=== PATIENT | male | born 1960 | race Caucasian/White ===

== ENCOUNTER 2017-02-02 07:28 | Emergency (ER) | payer BC ==
[~2017-02-02] VITALS: Ht 185.4 cm; Wt 90.0 kg
[2017-02-02 07:31] VITALS: Ht 185.4 cm; Wt 90.0 kg
[2017-02-02] MEDS ORDERED: HYDROCODONE/APAP (5/325) TAB PO ONE (08:00)
--- NOTE | 2017-02-02 08:56 | ERD ---
ER Documentation Chief Complaint Date/Time DATE: 02/02/17 TIME: 08:53 Chief Complaint LT THUMB INJURY , HIT WITH HAMMER X 2 DAYS AGO HPI This 56-year-old male who presents the emergency department today complaining of left thumb pain for the past 4 days. Patient states he hit his thumb with a hammer. States he has been taking aspirin for pain. Denies any previous trauma , fevers or chills. ROS All systems reviewed and are negative except as per history of present illness. Medications Home Meds Active Scripts Ibuprofen* (Motrin*) 600 Mg Tab, 600 MG PO Q6, #30 TAB Prov:JAEL DANIELS PA-C 02/02/17 Hydrocodone/Acetaminophen ([place] 5-325 Tablet) 1 Each Tablet, 1 TAB PO Q6H Y for PAIN, #10 TAB Prov:JAEL DANIELS PA-C 02/02/17 Allergies Allergies: Coded Allergies: No Known Allergy (Unverified , 02/02/17) PMhx/Soc History of Surgery: No Anesthesia Reaction: No Hx Neurological Disorder: No Hx Respiratory Disorders: No Hx Cardiac Disorders: No Hx Psychiatric Problems: No Hx Miscellaneous Medical Probl: No Hx Alcohol Use: No Hx Substance Use: No Hx Tobacco Use: No Physical Exam Vitals Vital Signs Date Time Temp Pulse Resp B/P Pulse Ox O2 Delivery O2 Flow Rate FiO2 02/02/17 07:31 97.7 66 16 139/84 97 Physical Exam Const: No acute distress Head: Atraumatic Eyes: Normal Conjunctiva ENT: Normal External Ears, Nose and Mouth. Neck: Full range of motion..~ No meningismus. Resp: Clear to auscultation bilaterally Cardio: Regular rate and rhythm, no murmurs Skin: No petechiae or rashes Ext: Left thumb with evidence of subungual hematoma. Nail bed still intact Neur: Awake and alert Psych: Normal Mood and Affect Results 24 hrs Current Medications Medications (Trade) Dose Ordered Sig/Maria C Route PRN Reason Start Time Stop Time Status Last Admin Dose Admin Acetaminophen/ Hydrocodone Bitart ([place] (5/325)) 1 tab ONCE ONCE PO 02/02/17 08:00 02/02/17 08:01 DC 02/02/17 07:58 DIAGNOSTIC IMAGING REPORT Patient: ABE HODGSON : 1960 Age: 56 Sex: M MR #: [id number] [facility] #: [id number] DOS: 02/02/17 0000 Ordering MD: JAEL DANIELS PA-C Location: [facility] Room/Bed: PROCEDURE: XR Left Thumb CLINICAL INDICATION: Hit with hammer, crush injury to thumb TECHNIQUE: AP, oblique, and lateral radiographs were submitted. COMPARISON: None FINDINGS: Osseous structures: appear well mineralized and intact with no fracture or destructive process identified. Joint spaces: Moderate degenerative changes seen about the interphalangeal joint of the left thumb. Mild degenerative changes seen about the first metacarpal phalangeal joint. Soft tissues: appear unremarkable. IMPRESSION: 1. No fracture is identified. 2. Moderate degenerative change seen about the interphalangeal joint of the left thumb with mild degenerative change at the first metacarpal phalangeal joint. Physician Pati Date Time Electronically viewed and signed by Physician Pati on 02/02/2017 09:18 RH/ CC: JAEL DANIELS PA-C Procedures/MDM This this is a right-handed 56-year-old male who presents the emergency department today complaining of left thumb pain after smashing it with a hammer. Patient has evidence of a subungual hematoma. I did obtain images. Per the radiology report images of the left thumb show no fracture or dislocation. There is moderate degenerative changes seen in at the IP joint of the left thumb and mild degenerative changes at the first MCP joint. The wound was cleaned here in the emergency department. I did make an attempt to remove some of the blood underneath the fingernail with an 18-gauge needle and a large amount of blood was released from the area. Patient was given Avella here in the emergency department. I will give him a short course of Avella as well as Motrin for home At this time the patient is stable for discharge and outpatient management. Patient should follow up with their PCP in the next 1-2 days. They may return to the emergency department sooner for any persistent or worsening of symptoms. Patient understood and agreed with the plan. Departure Diagnosis: Primary Impression: Nail problem Condition: Fair JAEL DANIELS PA-C February 02, 2017 08:56
--- NOTE | 2017-02-02 09:18 | RADRPT ---
PROCEDURE: XR Left Thumb CLINICAL INDICATION: Hit with hammer, crush injury to thumb TECHNIQUE: AP, oblique, and lateral radiographs were submitted. COMPARISON: None FINDINGS: Osseous structures: appear well mineralized and intact with no fracture or destructive process iden tified. Joint spaces: Moderate degenerative changes seen about the interphalangeal joint of the left thumb. Mild degenerative changes seen about the first metacarpal phalangeal joint. Soft tissues: appear unremarkable. IMPRESSION: 1. No fracture is identified. 2. Moderate degenerative change seen about the interphalangeal joint of the left thumb with mild de generative change at the first metacarpal phalangeal joint. Physician Pati Date Time Electronically viewed and signed by Physician Pati on 02/02/2017 09:18 /
[2017-02-02] MEDS ORDERED: HYDR-906 PO (09:41)
[2017-02-02] MEDS ORDERED: IBUP-1542 PO (09:41)
== END 2017-02-02 09:56 | disposition home or self-care (01) ==
LOC: FTE 07:28
DX: S60.112A Contusion of left thumb with damage to nail, initial encounter (principal); W27.0XXA Contact with workbench tool, initial encounter; Y92.9 Unspecified place or not applicable
CPT/HCPCS: 11740; 73140; Z7502; Z7610

== ENCOUNTER 2017-02-07 12:35 | Emergency (ER) | payer BC ==
[~2017-02-07] VITALS: Ht 180.3 cm; Wt 94.0 kg
[~2017-02-07 12:35] MED LIST: HYDR-906 PO; IBUP-1542 PO
[2017-02-07 12:38] VITALS: Ht 180.3 cm; Wt 94.0 kg
[2017-02-07] MEDS ORDERED: LIDOCAINE 1%/EPI 30 ML INJ INJ STA (13:28)
[2017-02-07] MEDS ORDERED: HYDROCODONE/APAP (5/325) TAB PO ONE (13:30)
[2017-02-07] MEDS ORDERED: LIDOCAINE 2%/EPI MPF (SDV) 20 ML VIAL INJ ONE (14:00)
[2017-02-07] MEDS ORDERED: LIDOCAINE 2%/EPI (MDV) 20ML INJ INJ ONE (14:00)
--- NOTE | 2017-02-07 14:18 | RADRPT ---
PROCEDURE: CT Brain without. CLINICAL INDICATION: Trauma to the forehead. Laceration. TECHNIQUE: A CT of the brain was performed utilizing axial sections from the skull base through th e vertex without contrast. The scan was reviewed in soft tissue brain and high frequency resolution bone algorithm windows. Images were reviewed on a high-resolution PACS workstation. images. The c alculated radiation dose measures 810.25 mGy centimeters. The CTDI measures 41.59 mGy. One or more of the following dose reduction techniques were used: - Automated exposure control. - Adjustment of the mA and/or kV according to patient size . - Use of iterative reconstruction technique. Images were reviewed on a high-resolution PACS workstation COMPARISON: None available FINDINGS: The ventricles and sulci are symmetric and normal in size and morphology. There is no evidence of i ntracranial hemorrhage, mass effect, edema or midline shift. No abnormal intra-axial or extra-axial fluid collections are seen. The density of the brain is normal and the jeff/white matter different iation is well preserved. Brainstem and posterior fossa structures are equally unremarkable. The o sseous structures and visualized paranasal sinuses are unremarkable. The surrounding soft tissue sc alp and bony calvarium are intact and normal. IMPRESSION: 1. No acute intracranial findings. RPTAT: PP .Dawood Thrasher MD, MD Date Time Electronically viewed and signed by .Dawood Thrasher MD, MD on 02/07/2017 14:18 .d/
[2017-02-07] MEDS ORDERED: HYDR-906 PO (15:10)
[2017-02-07] MEDS ORDERED: IBUP-1542 PO (15:10)
[2017-02-07] MEDS ORDERED: DIPHTH/TET/ACEL PERTUSS (ADULT) 0.5 ML VIAL IM* ONE (15:30)
--- NOTE | 2017-02-07 16:32 | ERD ---
ER Documentation Chief Complaint Date/Time DATE: 02/07/17 TIME: 16:22 Chief Complaint rt side forehead lac HPI This is a 56-year-old male without any significant medical history who presents to the ED with a laceration on the right forehead. Patient was fixing a wall of his house when a 14x5 inch heavy block of wood fell on his head today. There is no loss of consciousness. Patient complains of pain on the laceration area. Bleeding was reported but was controlled after applying direct pressure and ice at home. Denies dizziness, vision impairment, headache, fever, chest pain, nausea. Patient did not take any medications for symptom relief. Patient was unable to recall his last tetanus booster. ROS All systems reviewed and are negative except as per history of present illness. Medications Home Meds Active Scripts Hydrocodone/Acetaminophen ([place] 5-325 Tablet) 1 Each Tablet, 1 TAB PO Q6H Y for PAIN, #10 TAB Prov:JANA BURGER 02/07/17 Ibuprofen* (Motrin*) 600 Mg Tab, 600 MG PO Q6H Y for PAIN AND OR ELEVATED TEMP, #30 TAB Prov:JANA BURGER 02/07/17 Ibuprofen* (Motrin*) 600 Mg Tab, 600 MG PO Q6, #30 TAB Prov:JAEL DANIELS PA-C 02/02/17 Hydrocodone/Acetaminophen ([place] 5-325 Tablet) 1 Each Tablet, 1 TAB PO Q6H Y for PAIN, #10 TAB Prov:JAEL DANIELS PA-C 02/02/17 Allergies Allergies: Coded Allergies: No Known Allergy (Unverified , 02/02/17) PMhx/Soc History of Surgery: No Anesthesia Reaction: No Hx Neurological Disorder: No Hx Respiratory Disorders: No Hx Cardiac Disorders: No Hx Psychiatric Problems: No Hx Miscellaneous Medical Probl: No Hx Alcohol Use: No Hx Substance Use: No Hx Tobacco Use: No Smoking Status: Never smoker Physical Exam Vitals Vital Signs Date Time Temp Pulse Resp B/P Pulse Ox O2 Delivery O2 Flow Rate FiO2 02/07/17 12:38 97.9 88 16 132/78 98 Physical Exam Physical Exam CONST: Well-developed, well-nourished, in no acute distress. Nontoxic in appearance. HEENT: Atraumatic. Normal conjunctiva. EOM intact. TM intact. External ear is normal. Clear oropharnyx without erythema. No uvular deviation. Moist mucous membranes. Supple neck. No meningismus. No submandibular induration. RESP: Clear to auscultation bilaterally. No wheezing. CARDIO: Regular rate and rhythm, no murmurs. ABD: Soft, non tender, non distended. Normal bowel sounds. No McBurney's point tenderness. No guarding or rigidity. No peritoneal signs. SKIN: 2 cm deep laceration on the right forehead. No foreign body. Minimal oozing. BACK: No midline or flank tenderness. EXT: No cyanosis or edema. Distal pulses equal and bilateral. NEURO: Awake and alert, appropriate for age. 5/5 strength in all extremities. Normal speech. Steady gait. Results 24 hrs Current Medications Medications (Trade) Dose Ordered Sig/Maria C Route PRN Reason Start Time Stop Time Status Last Admin Dose Admin Acetaminophen/ Hydrocodone Bitart ([place] (5/325)) 1 tab ONCE ONCE PO 02/07/17 13:30 02/07/17 13:32 DC 02/07/17 13:41 Lidocaine/ Epinephrine (Xylocaine 1%/ Epi) 30 ml ONCE STAT INJ 02/07/17 13:28 02/07/17 13:32 DC Lidocaine/ Epinephrine (Xylocaine 2%/ Epi (Mdv) 20 ml) 20 ml ONCE ONCE INJ 02/07/17 14:00 02/07/17 14:00 DC Lidocaine/ Epinephrine (Xylocaine 2%/ Epi Mpf(Sdv)) 20 ml ONCE ONCE INJ 02/07/17 14:00 02/07/17 14:01 DC Diphtheria/ Tetanus/Acell Pertussis (Adacel) 0.5 ml ONCE ONCE IM* 02/07/17 15:30 02/07/17 15:31 DC 02/07/17 15:19 PROCEDURE: CT Brain without. CLINICAL INDICATION: Trauma to the forehead. Laceration. TECHNIQUE: A CT of the brain was performed utilizing axial sections from the skull base through the vertex without contrast. The scan was reviewed in soft tissue brain and high frequency resolution bone algorithm windows. Images were reviewed on a high-resolution PACS workstation. images. The calculated radiation dose measures 810.25 mGy centimeters. The CTDI measures 41.59 mGy. One or more of the following dose reduction techniques were used: - Automated exposure control. - Adjustment of the mA and/or kV according to patient size . - Use of iterative reconstruction technique. Images were reviewed on a high-resolution PACS workstation COMPARISON: None available FINDINGS: The ventricles and sulci are symmetric and normal in size and morphology. There is no evidence of intracranial hemorrhage, mass effect, edema or midline shift. No abnormal intra-axial or extra-axial fluid collections are seen. The density of the brain is normal and the jeff/white matter differentiation is well preserved. Brainstem and posterior fossa structures are equally unremarkable. The osseous structures and visualized paranasal sinuses are unremarkable. The surrounding soft tissue scalp and bony calvarium are intact and normal. IMPRESSION: 1. No acute intracranial findings. RPTAT: PP .Dawood Thrasher MD, MD Date Time Electronically viewed and signed by .Dawood Thrasher MD, on 02/07/2017 14:18 Procedures/MDM EMERGENCY DEPARTMENT COURSE/MEDICAL DECISION MAKING This is a 56-year-old male who comes to the emergency room secondary to complaints of laceration on the right forehead status post trauma. No loss of consciousness. The patient was given [place] for pain. On re-evaluation, the patient's symptoms improved. Patient was also given a Tdap IM for tetanus prophylaxis. CT of the head was done and was interpreted by a radiologist. Results shows no acute intracranial abnormalities. Laceration Repair by me: Anesthesia: 2% lidocaine with epinephrine locally Location: Right forehead Tendon/Joint/Nerves: No injury Foreign body: None detected after copious irrigation and exploration Technique: 3 Simple Interrupted Sutures Complexity: No subcutaneous sutures/mucosal repair/ edge excision Post Closure Length: 2 cm Patient's bleeding was easily controlled in the department and there is no indication of anemia. No evidence of compartment syndrome, neurologic injury, vascular injury, open joint, tendon laceration, or foreign body. Patient is appropriate for outpatient follow up. 48 hour wound check. Scar minimization instructions given. My primary diagnosis is laceration. Differential diagnoses considered but not limited to foreign body, cellulitis, fracture, intracranial bleed. Pt is hemodynamically stable upon reassessment. There are no new complaints during the ED course. The patient was discharged for outpatient management with a prescription for ibuprofen and norco. Patient was instructed to return to ED in 2 days for wound recheck. The patient was advised to followup with their PMD in 1-2 days and to return to the Emergency Department if there are any new or worsening symptoms. The patient understood and agreed with the diagnosis, treatment and plan. Patient is stable for discharge at this time. Departure Diagnosis: Primary Impression: Laceration Condition: Stable Patient Instructions: Laceration, Face (Suture Or Tape) Additional Instructions: Return in 2 days for a wound re-check Call your primary care doctor tomorrow for an appointment during the next 1-2 days. Return to the emergency department immediately should you have any new or worsening symptoms. Take all medications as directed. JANA BURGER February 07, 2017 16:32
== END 2017-02-07 15:38 | disposition home or self-care (01) ==
LOC: FTE 12:35
DX: S01.81XA Laceration without foreign body of other part of head, initial encounter (principal); W20.8XXA Other cause of strike by thrown, projected or falling object, initial encounter; Y92.9 Unspecified place or not applicable; Z23 Encounter for immunization
CPT/HCPCS: 12011; 70450; 90471; 90715; Z7502; Z7610

== ENCOUNTER 2017-02-14 05:49 | Emergency (ER) | payer BC ==
[~2017-02-14] VITALS: Ht 185.4 cm; Wt 95.0 kg
[2017-02-14 05:53] VITALS: Ht 185.4 cm; Wt 95.0 kg
--- NOTE | 2017-02-14 06:52 | ERD ---
ER Documentation Chief Complaint Date/Time DATE: 02/14/17 TIME: 06:51 Chief Complaint suture removal right eyebrow, sutured 1 week ago HPI 6-year-old male presents to the emergency department for suture removal of a repaired laceration that was done 1 week ago above his right eyebrow from an injury. Patient denies any pain, states it 0 out of 10. He denies any fevers, increased redness or neuro deficits. ROS All systems reviewed and are negative except as per history of present illness. Medications Home Meds Active Scripts Hydrocodone/Acetaminophen ([place] 5-325 Tablet) 1 Each Tablet, 1 TAB PO Q6H Y for PAIN, #10 TAB Prov:JANA BURGER 02/07/17 Ibuprofen* (Motrin*) 600 Mg Tab, 600 MG PO Q6H Y for PAIN AND OR ELEVATED TEMP, #30 TAB Prov:JANA BURGER 02/07/17 Ibuprofen* (Motrin*) 600 Mg Tab, 600 MG PO Q6, #30 TAB Prov:JAEL DANIELS PA-C 02/02/17 Hydrocodone/Acetaminophen ([place] 5-325 Tablet) 1 Each Tablet, 1 TAB PO Q6H Y for PAIN, #10 TAB Prov:JAEL DANIELS PA-C 02/02/17 Allergies Allergies: Coded Allergies: No Known Allergy (Unverified , 02/14/17) PMhx/Soc History of Surgery: No Anesthesia Reaction: No Hx Neurological Disorder: No Hx Respiratory Disorders: No Hx Cardiac Disorders: No Hx Psychiatric Problems: No Hx Miscellaneous Medical Probl: No Hx Alcohol Use: No Hx Substance Use: No Hx Tobacco Use: No Physical Exam Vitals Vital Signs Date Time Temp Pulse Resp B/P Pulse Ox O2 Delivery O2 Flow Rate FiO2 02/14/17 05:53 98.3 70 20 125/69 97 Physical Exam GENERAL: well-developed/well-nourished, in no apparent distress, non-toxic appearing HENT: NC/AT, bilateral tympanic membrane is normal with good cone of light, nares patent, oropharynx clear without exudates EYES: Conjunctiva normal, PERRLA, EOMI, no nystagmus noted NECK: Supple, no lymphadenopathy PULM: CTA bilaterally, no rales, rhonchi, or wheezing heard CV: Normal S1S2, RRR, good capillary refill GI: Soft, non-distended, normal bowel sounds, non-tender BACK: No midline tenderness, no masses, No CVAT EXT: No clubbing, cyanosis, or edema NEURO: Alert and orientated to person, place, and time. CN II-IIX intact. Gait and coordination were normal. Hand corporate relations manager strength were equal and within normal limits SKIN: 3 sutures intact above right eyebrow, no dehiscence or purulence or induration PSYCH: Normal mood and mentation, patient denied SI Procedures/MDM This is a 56-year-old male presenting to the emergency department for an encounter to remove his sutures that was done 1 week ago at this facility. On examination patient had no evidence of cellulitis or dehiscence. An alcohol swab was used and I have removed 3 sutures. Patient had a normal neurological exam. He is stable for discharge with precautions to return to the ER for any worsening signs or symptoms. Patient understands and agrees with this plan Stable discharge home Departure Diagnosis: Primary Impression: Encounter for removal of sutures Additional Impression: Laceration Condition: Stable Patient Instructions: Laceration, How To Minimize Scar, Staple Removal, No Complication Referrals: PETTY GUZMAN (PCP) Additional Instructions: FOLLOW UP WITH YOUR PRIMARY CARE PHYSICIAN TOMORROW.Return to this facility if you are not improving as expected. Return to this facility if you are not improving as expected. AMINAH SAHU PA-C February 14, 2017 06:52
== END 2017-02-14 06:33 | disposition home or self-care (01) ==
LOC: FTE 05:49
DX: Z48.02 Encounter for removal of sutures (principal); S01.111D Laceration without foreign body of right eyelid and periocular area, subsequent encounter; X58.XXXD Exposure to other specified factors, subsequent encounter
CPT/HCPCS: 99281

== ENCOUNTER 2017-02-22 06:19 | Emergency (ER) | payer BC ==
[~2017-02-22] VITALS: Ht 185.4 cm; Wt 95.0 kg
[2017-02-22 06:26] VITALS: Ht 185.4 cm; Wt 95.0 kg
--- NOTE | 2017-02-22 07:03 | ERD ---
ER Documentation Chief Complaint Date/Time DATE: 02/22/17 TIME: 06:39 Chief Complaint pt reports tongue pain for a few days that is not going away HPI 51-year-old male who presented emergency department for tongue pain for about a few days. Denies headache, loss of consciousness, dizziness, blurry vision, changes in vision, photophobia, facial pain, ear pain, throat pain, difficulty swallowing, neck pain, shoulder pain, chest pain, cough, hemoptysis, abdominal pain, back pain, loss of appetite, nausea, vomiting, hematochezia, diarrhea, constipation, urinary symptoms, bladder and bowel incontinences, extremity weakness, extremity tenderness, numbness or tingling sensation, difficulty walking, recent travel, recent exposure to illness, recent antibiotic use in the last 3 months, fever, chills. Allergy: No known drug allergies. PMH: Denies. Medications: Surgery: "Deviated septum surgery." Family history: Denies. Primary Social History: Not working at this time. Denies smoking, use of alcohol, use of illegal drugs. ROS All systems reviewed and are negative except as per history of present illness. Medications Home Meds Active Scripts Nystatin (Nystatin) 100,000 Unit/1 Ml Oral.susp, 4 ML PO QID for 7 Days, OZ Swish and swallow Prov:MILE IGLESIAS 02/22/17 Hydrocodone/Acetaminophen ([place] 5-325 Tablet) 1 Each Tablet, 1 TAB PO Q6H Y for PAIN, #10 TAB Prov:JANA BURGER 02/07/17 Ibuprofen* (Motrin*) 600 Mg Tab, 600 MG PO Q6H Y for PAIN AND OR ELEVATED TEMP, #30 TAB Prov:JANA BURGER 02/07/17 Ibuprofen* (Motrin*) 600 Mg Tab, 600 MG PO Q6, #30 TAB Prov:JAEL DANIELS PA-C 02/02/17 Hydrocodone/Acetaminophen ([place] 5-325 Tablet) 1 Each Tablet, 1 TAB PO Q6H Y for PAIN, #10 TAB Prov:JAEL DANIELS PA-C 02/02/17 Allergies Allergies: Coded Allergies: No Known Allergy (Unverified , 02/14/17) PMhx/Soc History of Surgery: No Anesthesia Reaction: No Hx Neurological Disorder: No Hx Respiratory Disorders: No Hx Cardiac Disorders: No Hx Psychiatric Problems: No Hx Miscellaneous Medical Probl: No Hx Alcohol Use: No Hx Substance Use: No Hx Tobacco Use: No Physical Exam Vitals Vital Signs Date Time Temp Pulse Resp B/P Pulse Ox O2 Delivery O2 Flow Rate FiO2 02/22/17 06:26 97.2 61 16 133/79 100 Physical Exam CONSTITUTIONAL: Well-appearing; well-nourished; in no apparent distress. HEAD: Normocephalic; atraumatic. EYES: Conjunctiva clear, sclera non-icteric, EOM intact. PERRL Ears: Hearing intact. EACs clear, TMs non-bulging, non-inflamed, translucent & mobile, ossicles normal appearance, No obstructions, no erythema, no discharges Nose: No obstructions. No polyps. No external lesions. Mucosa non-inflamed. No external lesions, septum and turbinates normal. No rhinorrhea. No discharges. Frontal sinus is non-tender to palpation. Maxillary sinus is non-tender to palpation. MOUTH: Moist mucous membranes, no lesion, no obstructions, no vesicles, patent airway. Visible oral thrush tongue area. Tongue is not swollen. Patient able to control movement of his tongue. No signs of angioedema. Tolerating secretions. No difficulty swallowing. Patent airway. Speaks full and clear sentences. Throat: Uvula in midline. Right tonsil is +1 with no erythema, no exudate. Left tonsil is +1 with no erythema, no exudate. Tolerating secretions well. Good gag reflex. Patent airway. Neck: Supple, without lesions, bruits, or adenopathy. No mass. Thyroid non- enlarged and non-tender to palpation. CHEST: Symmetrical chest. Respirations even and not labored. No retractions noted. CARDIOVASCULAR: Normal S1, S2. RRR. No murmurs, gallops. RESPIRATORY: Normal chest excursion with respiration; breath sounds clear and equal bilaterally; no wheezes, rhonchi, or rales. Breathing even and unlabored. Speaking in clear, full, and complete sentences w/ ease. ABDOMEN: Normal bowel sounds normal. Soft, round, non-distended, non-guarding, no tenderness, no rebound, no organomegaly, no masses, no pulsating abdominal mass. No hernia. No peritoneal signs. : No CVA tenderness. BACK: Symmetrical shoulder. Spine is midline without deformity, tenderness. No evidence of trauma or deformity. PELVIS: Stable pelvis. No evidence of trauma or deformity. MUSCULOSKELETAL: Normal gait and station. No misalignment, asymmetry, crepitation, defects, tenderness, masses, effusions, decreased range of motion, instability, atrophy or abnormal strength or tone in the head, neck, spine, ribs , pelvis or extremities. No calf tenderness. NEUROVASCULAR: Distal pulses are present. Pedal pulse are present, equal, and normal. Capillary refills are < 2 seconds. NEUROLOGIC: Alert and oriented x4. Speaks full and clear sentences. Cranial Nerves II-XII normal. Sensation to pain, touch, and proprioception normal. Grossly unremarkable. No neurologic deficits. Romberg test is negative. PSYCHOLOGICAL: The patients mood and manner are appropriate. No hallucinations , delusions. Not SI. Not HI. Has the capacity to decide for self SKIN: Normal for age and ethnicity; warm; dry; good turgor; no apparent lesions or exudates. No rashes, hives, discoloration. Intact. Procedures/MDM Examination: Please see physical examination. Disease process, medical treatment was explained to the patient and family member. They verbalized understanding and agreed with the medical treatment, and follow-up care. Re-evaluation: Denies headache, dizziness, blurry vision, neck pain, shoulder pain, chest pain, back pain, abdominal pain. No episode of emesis in the emergency department. Tolerating secretions. No difficulty swallowing. Patent airway. No signs of angioedema. Respirations even and unlabored. Lung sounds are clear to auscultation. There is no right upper/right lower/ epigastric/left upper/left lower abdominal tenderness and light and deep palpation. No peritoneal signs. No CVA tenderness. Ambulatory with steady gait. Consultation: None. Differential diagnosis: Angioedema versus oral candidiasis Medical decision makin-year-old male who presented emergency department for tongue pain for about a few days. Patient's complaint, patient's history about his complaint, my physical findings, my reevaluation are consistent my final diagnosis of oral candidiasis/tongue candidiasis. Medications prescribed are the following: Nystatin. Patient and family member are made aware of the side effects and adverse reactions of the medications prescribed. Instructed on when to seek emergent and medical attention in case allergic/anaphylactic reactions or severe side effects and or adverse reactions to medications. Patient and family member verbalized understanding. Patient instructed Instructed to follow-up with his PCP in 24-48 hours. Instructed to Call 911 for chest pain, shortness of breath. Advised to come back here in ED as soon as possible for severity of symptoms which includes but not limited to: any new symptoms; shortness of breath/difficulty of breathing; cardiovascular changes; severe gastrointestinal symptoms; signs and symptoms of bleeding and or infection; signs of compartment syndrome/neurovascular changes; neurological changes/deficits. Patient and family member verbalized understanding. Upon discharge, patient is alert and oriented x 4, speaks full and clear sentences, denies pain, has no neurological deficits, has no neurovascular deficits, difficulty of breathing. Breathing even and unlabored. Lung sounds are clear to auscultation. Not in distress. Appears comfortable. Ambulatory with steady gait. Appears satisfied with care provided here in ED. Departure Diagnosis: Primary Impression: Oral candidiasis Condition: Stable Additional Instructions: Patient instructed Instructed to follow-up with his PCP in 24-48 hours. Instructed to Call 911 for chest pain, shortness of breath. Advised to come back here in ED as soon as possible for severity of symptoms which includes but not limited to: any new symptoms; shortness of breath/difficulty of breathing; cardiovascular changes; severe gastrointestinal symptoms; signs and symptoms of bleeding and or infection; signs of compartment syndrome/neurovascular changes; neurological changes/deficits. Patient and family member verbalized understanding. MILE IGLESIAS February 22, 2017 07:03
[2017-02-22] MEDS ORDERED: NYST1000 PO (07:06)
== END 2017-02-22 07:43 | disposition home or self-care (01) ==
LOC: FTE 06:19
DX: B37.0 Candidal stomatitis (principal)
CPT/HCPCS: 99283

== ENCOUNTER 2017-11-25 11:49 | Emergency (ER) | END 2017-11-25 16:54 | disposition home or self-care (01) ==

== ENCOUNTER 2017-12-31 22:48 | Emergency (ER) | END 2018-01-01 03:31 | disposition home or self-care (01) ==

== ENCOUNTER 2019-01-20 07:27 | Emergency (ER) | payer BC ==
[~2019-01-20] VITALS: Ht 177.8 cm; Wt 88.7 kg
[~2019-01-20 07:27] MED LIST changes: +ACET325T33 PO; +ACET500C5 PO; +FIORICET PO; +HYDR-4011 PO; -HYDR-906 PO; +NYST1000 PO; +PHEN177S6 MM
[2019-01-20 07:39] VITALS: Ht 177.8 cm; Wt 88.7 kg
[2019-01-20] MEDS ORDERED: KETOROLAC 60 MG INJ IM STA (08:42)
[2019-01-20] MEDS ORDERED: IBUP-1542 PO (11:37)
[2019-01-20 11:49] VITALS: BP 119/78; PULSE 71; RESP 18
--- NOTE | 2019-01-21 06:19 | ERD ---
ER Documentation Chief Complaint Chief Complaint INTERMITTENT PAIN IN THE HEAD 5/10 ONSET LAST NIGHT. HPI 58-year-old male patient with no significant past medical history presents to the ED with a sudden onset of left-sided pulsating headache that drives from behind his ear to his temporal area. Describes as a shooting sensation and rates it a 5 out of 10. States that sometimes it is very painful, he is crying. Reports he has photosensitivity. Reports that he also has photophobia p.o. Reports that he has bilateral needle sensation in his feet when he feels like he is in emotional stress. Denies any suicidal or homicidal ideations. States that he has had a history of recurrent head injuries. Denies any fever, chills, nausea, neck stiffness, cough, rhinorrhea, chest pain, shortness of breath, abdominal pain, vomiting. ROS All systems reviewed and are negative except as per history of present illness. Medications Home Meds Active Scripts Ibuprofen* (Motrin*) 600 Mg Tab, 600 MG PO Q6, #30 TAB take with food Prov:HEATHER WESTON PA-C 01/20/19 Phenol* (Throat [place]*) 177 Ml [place], 2 SPRAY MM Q2H PRN for SORE THROAT for 3 Days, SPRAY Prov:ERICA ROSALES C 01/01/18 Acetaminophen* (Tylenol*) 325 Mg Tablet, 2 TAB PO Q8 PRN for PAIN AND OR ELEVATED TEMP, #20 TAB Prov:ERICA ROSALES C 01/01/18 Ibuprofen* (Motrin*) 600 Mg Tab, 600 MG PO Q6, #30 TAB Prov:ERICA ROSALES C 18 Acetamin/Butalbital/Caffeine* (Fioricet*) [id number] Tab, 1 TAB PO Q6H PRN for PAIN, #14 TAB Prov:ELBERT GUERRERO MD 11/25/17 Acetaminophen* (Tylophen*) 500 Mg Capsule, 1 CAP PO Q6H PRN for PAIN AND OR ELEVATED TEMP, #15 CAP Prov:ELBERT GUERRERO MD 11/25/17 Nystatin (Nystatin) 100,000 Unit/1 Ml Oral.susp, 4 ML PO QID for 7 Days, OZ Swish and swallow Prov:MILE IGLESIAS 5/28/17 Hydrocodone/Acetaminophen ([place] 5-325 Tablet) 1 Each Tablet, 1 TAB PO Q6H PRN for PAIN, #10 TAB Prov:JANA BURGER 02/07/17 Ibuprofen* (Motrin*) 600 Mg Tab, 600 MG PO Q6H PRN for PAIN AND OR ELEVATED TEMP, #30 TAB Prov:JANA BURGER 02/07/17 Ibuprofen* (Motrin*) 600 Mg Tab, 600 MG PO Q6, #30 TAB Prov:JAEL DANIELS PA-C 02/02/17 Hydrocodone/Acetaminophen ([place] 5-325 Tablet) 1 Each Tablet, 1 TAB PO Q6H PRN for PAIN, #10 TAB Prov:JAEL DANIELS PA-C 02/02/17 Allergies Allergies: Coded Allergies: No Known Allergy (Unverified , 01/20/19) PMhx/Soc History of Surgery: Yes (nose (deviated septum)) Anesthesia Reaction: No Hx Neurological Disorder: No Hx Respiratory Disorders: No Hx Cardiac Disorders: No Hx Psychiatric Problems: No Hx Miscellaneous Medical Probl: No Hx Alcohol Use: No Hx Substance Use: No Hx Tobacco Use: No Smoking Status: Never smoker FmHx Family History: No diabetes, No coronary disease Physical Exam Vitals Vital Signs Date Temp Pulse Resp B/P (MAP) Pulse Ox O2 O2 Flow FiO2 Time Delivery Rate 01/20/19 98.0 71 18 119/78 98 Room Air 11:49 (92) 01/20/19 97.8 65 18 123/80 98 07:39 (94) Physical Exam Const: [id number], well-nourished. In no acute distress. Head: Atraumatic, normocephalic there are no hematoma. No hahn sign. Eyes: Normal Conjunctiva without injection. No purulent discharge. PERRLA. EOMI ENT: Normal external ear. Ear canal without erythema. Tympanic membrane pearly jeff without effusion or bulging. Nasal canal clear with normal turbinates. Moist oropharynx without tonsillar exudates. Non-erythematous pharynx. Uvula midline. No drooling. No trismus. Neck: No cervical midline tenderness. Full range of motion. No meningismus. No cervical lymphadenopathy. No JVD. Resp: Clear to auscultation bilaterally. No wheezing, rhonchi, rales, or crackles. No accessory muscle use. No retractions. Cardio: Regular rate and rhythm. No murmurs, rubs or gallops. Abd: Soft, non tender, non distended. Normal bowel sounds. No palpable masses. No rebound tenderness. No guarding. Negative McBurney's Point. Negative Lester's Sign. Skin: Normal skin turgor. No petechiae or rashes Back: No midline tenderness. No CVA tenderness. Ext: No cyanosis, or edema. Distal pulses intact bilaterally. Neur: Awake and alert. Normal gait. Normal coordination. Cranial Nerves II- VII intact. Normal finger to nose. Muscle strength 5/5. Sensation intact. Psych: Normal Mood and Affect Results 24 hrs Laboratory Tests Test 01/20/19 09:35 White Blood Count 6.4 10^3/ul Red Blood Count 5.64 10^6/ul Hemoglobin 16.4 g/dl Hematocrit 48.4 % Mean Corpuscular Volume 85.8 fl Mean Corpuscular Hemoglobin 29.1 pg Mean Corpuscular Hemoglobin Concent 33.9 g/dl Red Cell Distribution Width 12.5 % Platelet Count 174 10^3/UL Mean Platelet Volume 9.6 fl Immature Granulocytes % 0.600 % Neutrophils % 57.4 % Lymphocytes % 31.1 % Monocytes % 7.7 % Eosinophils % 2.4 % Basophils % 0.8 % Nucleated Red Blood Cells % 0.0 /100WBC Immature Granulocytes # 0.040 10^3/ul Neutrophils # 3.7 10^3/ul Lymphocytes # 2.0 10^3/ul Monocytes # 0.5 10^3/ul Eosinophils # 0.2 10^3/ul Basophils # 0.1 10^3/ul Nucleated Red Blood Cells # 0.0 10^3/ul Erythrocyte Sedimentation Rate 7 mm/Hr Sodium Level 143 mmol/L Potassium Level 4.4 mmol/L Chloride Level 107 mmol/L Carbon Dioxide Level 26 mmol/L Anion Gap 10 Blood Urea Nitrogen 13 mg/dl Creatinine 0.72 mg/dl Est Glomerular Filtrat Rate mL/min > 60 mL/min Glucose Level 111 mg/dl Calcium Level 10.0 mg/dl Total Bilirubin 2.5 mg/dl Direct Bilirubin 0.00 mg/dl Indirect Bilirubin 2.5 mg/dl Aspartate Amino Transf (AST/SGOT) 30 IU/L Alanine Aminotransferase (ALT/SGPT) 28 IU/L Alkaline Phosphatase 105 IU/L Total Protein 8.6 g/dl Albumin 4.8 g/dl Globulin 3.80 g/dl Albumin/Globulin Ratio 1.26 Current Medications Medications Dose Sig/Maria C Start Time Status Last (Trade) Ordered Route PRN Stop Time Admin Dose Reason Admin Ketorolac 60 mg ONCE STAT 01/20/19 DC 01/20/19 Tromethamine IM 08:42 08:56 (Toradol) 01/20/19 08:44 Procedures/MDM 58-year-old male patient with no significant past medical history presents ED complaining of a mild shooting pain that started suddenly, last night. Patient is afebrile and nontoxic-appearing. A CT of the brain, ESR, CMP, CRP BC was ordered to further evaluate patient. CBC: No leukocytosis. No e/o of systemic infection. No e/o anemia. CMP: No e/o severe acidosis, alkalosis, renal failure, diabetic ketoacidosis, liver disease IMPRESSION: 1. No acute intracranial hemorrhage, transcortical infarction or mass effect. 2. Mild intracranial atherosclerosis and chronic small vessel ischemic changes. 3. Mild generalized cerebral volume loss. Patient should follow-up with a neurologist. Differentials include postconcussive syndrome versus migraine. ESR 7 therefore was suspicion for temporal arteritis. This patient was discussed with my supervising physician by Dr. Johnson who agreed with the management discharge plan. Low suspicion for intracranial bleed, subarachnoid hemorrhage, meningitis, TIA, stroke, subdural [place], epidural hematoma, or other emergent conditions. Diagnosis: Headache Discharge medications: Ibuprofen Follow up with primary care physician in 1-2 days. Instructed patient to return to the ED sooner for any worsening symptoms. Patient's questions were answered. Patient is hemodynamically stable. Patient understood and agreed with discharge plan. Patient discharged stable. Disclaimer: Inadvertent spelling and grammatical errors are likely due to EHR/dictation software use and do not reflect on the overall quality of patient care. Also, please note that the electronic time recorded on this note does not necessarily reflect the actual time of the patient encounter. Departure Diagnosis: Primary Impression: Headache Headache type: unspecified Headache chronicity pattern: unspecified pattern Intractability: not intractable Qualified Codes: R51 - Headache Condition: Stable Patient Instructions: Headache, Unspecified Referrals: COMMUNITY CLINICS YOU HAVE RECEIVED A MEDICAL SCREENING EXAM AND THE RESULTS INDICATE THAT YOU DO NOT HAVE A CONDITION THAT REQUIRES URGENT TREATMENT IN THE EMERGENCY DEPARTMENT. FURTHER EVALUATION AND TREATMENT OF YOUR CONDITION CAN WAIT UNTIL YOU ARE SEEN IN YOUR DOCTORS OFFICE WITHIN THE NEXT 1-2 DAYS. IT IS YOUR RESPONSIBILITY TO MAKE AN APPOINTMENT FOR FOLOW-UP CARE. IF YOU HAVE A PRIMARY DOCTOR --you should call your primary doctor and schedule an appointment IF YOU DO NOT HAVE A PRIMARY DOCTOR YOU CAN CALL OUR PHYSICIAN REFERRAL HOTLINE AT IF YOU CAN NOT AFFORD TO SEE A PHYSICIAN YOU CAN CHOSE FROM THE FOLLOWING [facility] [address] [address] [facility]. [facility] [address] [facility] [address] [facility] [facility] [address] [facility] [address] [facility]. [facility] [address] [facility]. [facility] YOU HAVE RECEIVED A MEDICAL SCREENING EXAM AND THE RESULTS INDICATE THAT YOU DO NOT HAVE A CONDITION THAT REQUIRES URGENT TREATMENT IN THE EMERGENCY DEPARTMENT. FURTHER EVALUATION AND TREATMENT OF YOUR CONDITION CAN WAIT UNTIL YOU ARE SEEN IN YOUR DOCTORS OFFICE WITHIN THE NEXT 1-2 DAYS. IT IS YOUR RESPONSIBILITY TO MAKE AN APPOINTMENT FOR FOLOW-UP CARE. IF YOU HAVE A PRIMARY DOCTOR --you should call your primary doctor and schedule and appointment IF YOU DO NOT HAVE A PRIMARY DOCTOR YOU CAN CALL OUR PHYSICIAN REFERRAL HOTLINE AT . IF YOU CAN NOT AFFORD TO SEE A PHYSICIAN YOU CAN CHOSE FROM THE FOLLOWING [facility] INSTITUTIONS[facility] [address] [place] [address] [facility] [address] [place] [address] [facility] [address] [place] [address] [facility] URGENT CARE/SPECIALTIES Additional Instructions: Call your primary care doctor TOMORROW for an appointment during the next 2-3 days for a referral to see a neurologist.See the doctor sooner or return here if your condition worsens before your appointment time. HEATHER WESTON PA-C Jan 21, 2019 06:19
== END 2019-01-20 11:48 | disposition home or self-care (01) ==
LOC: FTE 07:27
DX: R51 Headache (principal)
CPT/HCPCS: 70450; 80053; 85025; 85651; J1885; 36415; 96372